=== PATIENT | female | born 1995 | race Caucasian/White ===

== ENCOUNTER 2022-09-17 15:10 | Outpatient (CLI) | payer OTHER, SELFPAY ==
[2022-09-30 12:36] LABS: Campylobacter PCR Not Detected; Plesiomonas shig PCR Not Detected
[2022-09-30 12:37] LABS: Enteroaggregative E coli PCR Not Detected; Salmonella PCR Not Detected; Vibrio PCR Not Detected; Vibrio cholerae PCR Not Detected; Yersinia enterocolitica PCR Not Detected
[2022-09-30 12:38] LABS: Enteropathogenic E coli PCR Detected
[2022-09-30 12:39] LABS: Adenovirus PCR Not Detected; Astrovirus PCR Detected; Cryptosporidium PCR Not Detected; Cyclospora cayetanensis PCR Not Detected; Entamoeba histolytica PCR Not Detected; Enterotoxigenic E coli PCR Not Detected; Giardia lamblia PCR Not Detected; Norovirus Gi/GII PCR Not Detected; Rotavirus A PCR Not Detected; Shiga toxin E coli PCR Not Detected; Shigella/Enteroinvasive E coli Not Detected
[2022-09-30 12:43] LABS: Sapovirus PCR Not Detected
== END 2022-09-17 15:11 | disposition home or self-care (01) ==
PROVIDERS: Visit Provider Family Medicine
DX: R19.7 Diarrhea, unspecified (principal)
CPT/HCPCS: 87505